=== PATIENT | male | born 1955 ===

== ENCOUNTER 2025-01-24 14:51 | Inpatient (IN) | payer OTHER ==
[~2025-01-24] VITALS: Ht 172.7 cm; Wt 74.9 kg
[~2025-01-24 14:51] MED LIST: HYDACE5 PO; NAPR550 PO
[2025-01-24] MEDS ORDERED: LOSA25 PO (15:01)
[2025-01-24] MEDS ORDERED: AMLODIPINE BESY10 MG PO (15:01)
[2025-01-24] MEDS ORDERED: LOSA50 PO (15:02)
[2025-01-24] MEDS ORDERED: HYDCHL25 PO (15:02)
[2025-01-24 16:31] LABS: Alanine Aminotransfer (ALT/SGP 142.0 U/L (12-78); Albumin, Blood 3.2 g/dL (3.4-5.0); Albumin/Globulin Ratio 1.1 (0.8-1.8); Anion Gap 15.0 mmol/L (3-11); Aspartate Aminotrans (AST/SGOT 94.0 U/L (12-37); Bilirubin, Total 0.6 mg/dL (0.1-1.0); Blood Urea Nitrogen 10.0 mg/dL (8-24); CO2, Blood 20.0 mmol/L (21-32); Calcium, Blood 7.9 mg/dL (8.5-10.1); Chloride, Blood 86.0 mmol/L (98-108); Creatinine, Blood 0.95 mg/dL (0.60-1.20); Globulin, Blood 2.9 g/dL (2.2-4.0); Glucose, Blood 106.0 mg/dL (70-99); Potassium, Blood 3.6 mmol/L (3.5-5.5); Sodium, Blood 117.0 mmol/L (136-145); Total Protein, Blood 6.1 g/dL (6.4-8.2)
[2025-01-24 16:36] LABS: Ethanol (Alcohol), Blood, Med 301.0 mg/dL
[2025-01-24 17:16] LABS: Source, Urine Clean Catch
[2025-01-24 17:50] LABS: BASOPHILS ABSOLUTE AUTO 0.07 K/mm3 (0.00-0.23); BASOPHILS PERCENT AUTO 1 % (0-2); EOSINOPHILS ABSOLUTE AUTO 0.28 K/mm3 (0.00-0.68); EOSINOPHILS PERCENT AUTO 3 % (0-6); Hematocrit 33.3 % (37.0-53.0); Hemoglobin 12.5 g/dL (13.5-17.5); IMMATURE GRAN ABSOLUTE AUTO 0.10 K/mm3 (0.00-0.10); IMMATURE GRAN PERCENT AUTO 1 % (0-1); LYMPHOCYTES ABSOLUTE AUTO 2.27 K/mm3 (0.84-5.20); LYMPHOCYTES PERCENT AUTO 26 % (21-46); MONOCYTES ABSOLUTE AUTO 0.76 K/mm3 (0.16-1.47); MONOCYTES PERCENT AUTO 9 % (4-13); Mean Corpuscular HGB Conc 37.5 g/dL (31.5-36.5); Mean Corpuscular Volume 88 fL (80-100); NEUTROPHILS ABSOLUTE AUTO 5.43 K/mm3 (1.96-9.15); NEUTROPHILS PERCENT AUTO 61 % (41-73); NRBC ABSOLUTE 0.04 K/mm3 (0.00-0.02); NRBC Auto 0.4 /100 WBC (0.0-0.2); Platelet Count 231 K/mm3 (150-400); RDW Coefficient Variation 11.4 % (11.7-14.2); RDW Standard Deviation 36.5 fL (35.1-46.3)
[2025-01-24 18:08] LABS: Bilirubin, Urine Neg (Neg); Color, Urine Yellow (P-Yellow); Glucose Qualitative, Urine Neg (Neg); Ketones, Urine Neg (Neg); Leukocyte Esterase, Urine Neg (Neg); Protein, Urine 1+ (Neg); Specific Gravity, Urine 1.010 (1.003-1.022); Urobilinogen, Urine NORM (Normal)
[2025-01-24 18:47] LABS: Sodium, Urine, Random 13 mmol/L (20-110)
[2025-01-24 18:51] LABS: Osmolality, Urine 224 mos/kg (15-1400)
--- NOTE | 2025-01-24 19:09 | NUR ---
ARRIVAL TO ICU: PT ARRIVED TO ICU-10 VIA GURNEY AT APPROX 1832. PT SLID TO BED BY STAFF. A/OX4, VSS. 3% NA INFUSING PER ORDERS. PT CHANGED INTO GOWN & ASSISTED W/ URINAL. SPOUSE AT BEDSIDE. BEDSIDE REPORT TO NOC RN'S.
[2025-01-24 20:22] LABS: Anion Gap 15.0 mmol/L (3-11); Blood Urea Nitrogen 8.0 mg/dL (8-24); CO2, Blood 17.0 mmol/L (21-32); Calcium, Blood 8.2 mg/dL (8.5-10.1); Chloride, Blood 88.0 mmol/L (98-108); Creatinine, Blood 0.86 mg/dL (0.60-1.20); Glucose, Blood 84.0 mg/dL (70-99); Potassium, Blood 4.1 mmol/L (3.5-5.5); Sodium, Blood 116.0 mmol/L (136-145)
[2025-01-24 20:30] VITALS: BP 121/65
[2025-01-24 21:00] VITALS: BP 121/65
[2025-01-24] MEDS ORDERED: NS 500 ML IV ONE ×2 (21:00→23:00)
[2025-01-24 21:28] LABS: pH Blood Venous 7.44 (7.34-7.37)
[2025-01-24 21:30] VITALS: BP 123/63
[2025-01-24 22:00] VITALS: BP 121/68
[2025-01-24] MEDS ORDERED: Ondansetron HCl 2 MG / ML 2ML Vial IV PRN (22:15)
[2025-01-24 22:22] LABS: Acetaminophen, Random <2.0 ug/mL (10.0-30.0); Magnesium, Blood 1.7 mg/dL (1.6-2.4); Phosphorus, Blood 4.6 mg/dL (2.5-4.9); Salicylate 6.4 mg/dL (2.8-20.0); Thyroid Stimulating Hormone 0.742 uIU/mL (0.360-4.800)
[2025-01-24 22:27] LABS: U Amphetamine Screen Not Detected; U Barbituate Screen Not Detected; U Benzodiazapine Screen Not Detected; U Buprenorphine Screen Not Detected; U Cannabinoids Screen Not Detected; U Cocaine Screen Not Detected; U Methadone Screen Not Detected; U Methamphetamine Screen Not Detected; U Opiates Screen Not Detected; U Oxycodone Screen Not Detected; U Phencyclidine Screen Not Detected
[2025-01-24 22:30] VITALS: BP 124/63
[2025-01-24] MEDS ORDERED: NS 1,000 ML BAG IR ONE (22:45)
[2025-01-24 23:00] VITALS: BP 111/68
[2025-01-25] VITALS (43 sets, daily range): BP systolic 87–148; BP diastolic 50–109
[2025-01-25 00:06] LABS: Osmolality, Serum 292 mos/KG (275-300)
[2025-01-25 00:27] LABS: Anion Gap 13.0 mmol/L (3-11); Blood Urea Nitrogen 8.0 mg/dL (8-24); CO2, Blood 20.0 mmol/L (21-32); Calcium, Blood 8.1 mg/dL (8.5-10.1); Chloride, Blood 95.0 mmol/L (98-108); Creatinine, Blood 0.85 mg/dL (0.60-1.20); Glucose, Blood 72.0 mg/dL (70-99); Potassium, Blood 3.7 mmol/L (3.5-5.5); Sodium, Blood 124.0 mmol/L (136-145)
[2025-01-25 06:00] LABS: Alanine Aminotransfer (ALT/SGP 142.0 U/L (12-78); Albumin, Blood 3.3 g/dL (3.4-5.0); Albumin/Globulin Ratio 1.0 (0.8-1.8); Anion Gap 11.0 mmol/L (3-11); Aspartate Aminotrans (AST/SGOT 90.0 U/L (12-37); Bilirubin, Total 0.9 mg/dL (0.1-1.0); Blood Urea Nitrogen 8.0 mg/dL (8-24); CO2, Blood 21.0 mmol/L (21-32); Calcium, Blood 8.5 mg/dL (8.5-10.1); Chloride, Blood 101.0 mmol/L (98-108); Creatinine, Blood 0.9 mg/dL (0.60-1.20); Globulin, Blood 3.4 g/dL (2.2-4.0); Glucose, Blood 71.0 mg/dL (70-99); Potassium, Blood 4.1 mmol/L (3.5-5.5); Sodium, Blood 129.0 mmol/L (136-145); Total Protein, Blood 6.7 g/dL (6.4-8.2)
--- NOTE | 2025-01-25 06:13 | NUR ---
MD NOTIFY DR STEWARD UPDATED ON NA LAB RESULTS T/O SHIFT, LATEST NA 129. DR STEWARD TO INPUT ORDERS. CONTINUING TO MONITOR.
--- NOTE | 2025-01-25 06:39 | NUR ---
SHIFT SUMMARY PT ALERT/ORIENTED EARLY IN SHIFT. ETOH WITHDRAWAL SYMPTOMS INCREASING T/O NIGHT. LIBRIUM GIVEN FOR SYMPTOMS WHICH PT STATES WAS HELPFUL. O2 SAT OCCASIONALLY DROPPING WHILE ASLEEP, 2L NC STARTED TO KEEP O2SAT > 94%. LATEST CIWA WAS 8-9. VSS AT THIS TIME. WILL UPDATE DAY RN WITH OUTSTANDING ISSUES.
[2025-01-25 07:28] LABS: BASOPHILS ABSOLUTE AUTO 0.04 K/mm3 (0.00-0.23); BASOPHILS PERCENT AUTO 1 % (0-2); EOSINOPHILS ABSOLUTE AUTO 0.12 K/mm3 (0.00-0.68); EOSINOPHILS PERCENT AUTO 2 % (0-6); Hematocrit 34.7 % (37.0-53.0); Hemoglobin 12.9 g/dL (13.5-17.5); IMMATURE GRAN ABSOLUTE AUTO 0.02 K/mm3 (0.00-0.10); IMMATURE GRAN PERCENT AUTO 0 % (0-1); LYMPHOCYTES ABSOLUTE AUTO 1.56 K/mm3 (0.84-5.20); LYMPHOCYTES PERCENT AUTO 22 % (21-46); MONOCYTES ABSOLUTE AUTO 0.59 K/mm3 (0.16-1.47); MONOCYTES PERCENT AUTO 8 % (4-13); Mean Corpuscular Volume 89 fL (80-100); NEUTROPHILS ABSOLUTE AUTO 4.89 K/mm3 (1.96-9.15); NEUTROPHILS PERCENT AUTO 68 % (41-73); NRBC ABSOLUTE 0.00 K/mm3 (0.00-0.02); NRBC Auto 0.0 /100 WBC (0.0-0.2); Platelet Count 227 K/mm3 (150-400); RDW Coefficient Variation 11.5 % (11.7-14.2); RDW Standard Deviation 37.0 fL (35.1-46.3)
[2025-01-25 07:30] LABS: Mean Corpuscular HGB Conc 37.2 g/dL (31.5-36.5)
[2025-01-25] MEDS ORDERED: Enoxaparin 40 MG/0.4 ML SYR SC SCH (09:00)
--- NOTE | 2025-01-25 10:00 | NUR ---
AM NOTE PT ALERT AND ORIENTED FOR BEDSIDE REPORT FROM NOC RN. NEURO: ALERT AND ORIENTED X 4, CIWA SCORED 10, PT REPORTS MODERATE TREMORS, MILD HEADACHE, AND MILD NAUSEA. MEDICATED PER SEP. CARDIAC: MAPS >65, NO EDEMA, CAP REFILL<3 SECS. RESPIRATORY: ON RA WHILE AWAKE, 2L NC WHILE SLEEPING. LUNG SOUNDS DIM T/O, RHONCHI PRESENT THAT IT EASILY CLEARED W/ STRONG SPONTANEOUS COUGH. GI: BOWEL SOUNDS ACTIVE, ABD NONTENDER TO PALPITATION. : WNL. SKIN WITHOUT BREAKDOWN OR TEARS. ACCESS: PIV X 2 GTTS: D5 250ML/HR X 1L
[2025-01-25] MEDS ORDERED: OMEP20ER PO (10:48)
[2025-01-25 11:50] LABS: Anion Gap 8.0 mmol/L (3-11); Blood Urea Nitrogen 9.0 mg/dL (8-24); CO2, Blood 24.0 mmol/L (21-32); Calcium, Blood 8.4 mg/dL (8.5-10.1); Chloride, Blood 98.0 mmol/L (98-108); Creatinine, Blood 0.83 mg/dL (0.60-1.20); Glucose, Blood 145.0 mg/dL (70-99); Potassium, Blood 3.6 mmol/L (3.5-5.5); Sodium, Blood 126.0 mmol/L (136-145)
[2025-01-25 14:52] LABS: Anion Gap 10.0 mmol/L (3-11); Blood Urea Nitrogen 9.0 mg/dL (8-24); CO2, Blood 26.0 mmol/L (21-32); Calcium, Blood 8.5 mg/dL (8.5-10.1); Chloride, Blood 94.0 mmol/L (98-108); Creatinine, Blood 0.81 mg/dL (0.60-1.20); Glucose, Blood 81.0 mg/dL (70-99); Potassium, Blood 3.6 mmol/L (3.5-5.5); Sodium, Blood 126.0 mmol/L (136-145)
--- NOTE | 2025-01-25 17:49 | NUR ---
PM NOTE ASSESSMENT REMAINS UNCHANGED FROM AM NOTE. CIWA SCORES RANGED FROM 8-10, MEDICATED PER MAR Q4H. SODIUM LABS REMAINED STABLE T/O SHIFT. ACCESS: LAC PIV, RAC PIV
--- NOTE | 2025-01-25 19:00 | NUR ---
ASSUMPTION OF CARE BEDSIDE REPORT RECEIVED FROM DAY RN. REVIEWED ALL OUTSTANDING ISSUES AND PROBLEMS TO DATE. PT ALERT/ORIENTED AT THIS TIME. VSS. MILD ETOH WITHDRAWAL SYMPTOMS NOTED. WILL CONTINUE TO MONITOR.
[2025-01-25 19:28] LABS: Anion Gap 9.0 mmol/L (3-11); Blood Urea Nitrogen 9.0 mg/dL (8-24); CO2, Blood 25.0 mmol/L (21-32); Calcium, Blood 8.7 mg/dL (8.5-10.1); Chloride, Blood 94.0 mmol/L (98-108); Creatinine, Blood 0.82 mg/dL (0.60-1.20); Glucose, Blood 133.0 mg/dL (70-99); Potassium, Blood 3.3 mmol/L (3.5-5.5); Sodium, Blood 125.0 mmol/L (136-145)
--- NOTE | 2025-01-25 19:55 | NUR ---
NOTIFY HOSPITALIST MERLY UPDATED WITH LATEST SODIUM LEVEL OF 125. NEW ORDERS RECEIVED. WILL CONTINUE TO MONITOR.
[2025-01-26] VITALS (18 sets, daily range): BP systolic 110–146; BP diastolic 57–106
--- NOTE | 2025-01-26 01:21 | NUR ---
NOTIFY DR STEWARD UPDATED WITH MOST RECENT SODIUM LEVEL 127 AND K+ 3.3. ORDER RECEIVED. WILL CONTINUE TO MONITOR.
[2025-01-26] MEDS ORDERED: NS 1,000 ML IV SCH (05:30)
[2025-01-26 05:34] LABS: Anion Gap 9.0 mmol/L (3-11); Blood Urea Nitrogen 7.0 mg/dL (8-24); CO2, Blood 25.0 mmol/L (21-32); Calcium, Blood 8.6 mg/dL (8.5-10.1); Chloride, Blood 96.0 mmol/L (98-108); Creatinine, Blood 0.8 mg/dL (0.60-1.20); Glucose, Blood 84.0 mg/dL (70-99); Potassium, Blood 4.1 mmol/L (3.5-5.5); Sodium, Blood 126.0 mmol/L (136-145)
[2025-01-26 05:43] LABS: BASOPHILS ABSOLUTE AUTO 0.07 K/mm3 (0.00-0.23); BASOPHILS PERCENT AUTO 1 % (0-2); EOSINOPHILS ABSOLUTE AUTO 0.11 K/mm3 (0.00-0.68); EOSINOPHILS PERCENT AUTO 2 % (0-6); Hematocrit 34.8 % (37.0-53.0); Hemoglobin 13.0 g/dL (13.5-17.5); IMMATURE GRAN ABSOLUTE AUTO 0.02 K/mm3 (0.00-0.10); IMMATURE GRAN PERCENT AUTO 0 % (0-1); LYMPHOCYTES ABSOLUTE AUTO 1.28 K/mm3 (0.84-5.20); LYMPHOCYTES PERCENT AUTO 18 % (21-46); MONOCYTES ABSOLUTE AUTO 0.59 K/mm3 (0.16-1.47); MONOCYTES PERCENT AUTO 9 % (4-13); Mean Corpuscular HGB Conc 37.4 g/dL (31.5-36.5); Mean Corpuscular Volume 89 fL (80-100); NEUTROPHILS ABSOLUTE AUTO 4.91 K/mm3 (1.96-9.15); NEUTROPHILS PERCENT AUTO 70 % (41-73); NRBC ABSOLUTE 0.00 K/mm3 (0.00-0.02); NRBC Auto 0.0 /100 WBC (0.0-0.2); Platelet Count 218 K/mm3 (150-400); RDW Coefficient Variation 11.6 % (11.7-14.2); RDW Standard Deviation 37.1 fL (35.1-46.3)
--- NOTE | 2025-01-26 06:16 | NUR ---
SHIFT SUMMARY PT CONT TO IMPROVE WITH ONLY MILD TO MOD ETOH WITHDRAWAL SYMPTOMS. ALERT/ORIENTED. DENIES NEED FOR NICOTINE PATCH AT THIS TIME. LIBRIUM GIVEN FOR SYMPTOMS NEEDED. CONTINUES NEED FOR NC 2 L WHILE SLEEPING TO KEEP O2 SAT>94%. OCCAS PULLS NC OFF, REMINDED TO KEEP ON WHILE ASLEEP. LATEST NA LEVEL 126. WILL UPDATE DAY RN WITH OUTSTANDING ISSUES AND PROBLEMS TO DATE. VSS AT THIS TIME.
--- NOTE | 2025-01-26 11:24 | NUR ---
AM NOTE PT AWAKE AT TIME OF BEDSIDE REPORT W/ NOC RN. NEURO: ALERT AND ORIENTED X4, CIWA SCORE 4-6, MILDLY TREMULOUS IN UE. CARDAIC: NSR W/ FIRST DEGREE BLOCK, MAPS>65, CAP REFILL< 3 SECS, NO EDEMA. RESPIRATORY: LUNGS DIM T/O, RHNOCHI PRESENT IN UPPER LOBES AND ABLE TO BE CLEARED W/ SPONTANEOUS COUGH. ON RA WHILE AWAKE, FIO2>93%. GI: WNL. : BOWEL TONES ACTIVE, ABD SOFT AND NONTENDER TO PALPATION. SKIN: WNL. ACCESS: RAC PIV, LAC PIV GTTS: NS 125
--- NOTE | 2025-01-26 14:00 | NUR ---
PT TRANSFERRED TO [facility] VIA WHEELCHAIR W/ ALL BELONGINGS.
--- NOTE | 2025-01-26 14:06 | NUR ---
ASSUMPITION NOTE: this rn to assume care of patient. patient is alert and oriented x4 & cooperative with his care, is able to make needs known & was oriented to the call light. pt vitals stable, denied any chest pain/pressure or feeling of shortness of breath. patient called to notify about room change. has call light within reach,phone & urinal are within reach & bed in lowest position stating nothing else is needed at this time.
--- NOTE | 2025-01-26 17:06 | NUR ---
Pt. is awake and welcomes my visit. Pt. is pleasant. Spouse is at bedside. Facilitated a life review and considered matters of samantha and belief. Pt. verbalized that he is angry towards God because of circumstances in his life. Listen with Pastoral care and empathy. As Life review continues it was discovered that we are neighbors. Rapport is establish and Pt. and spouse displayed evidence of being encouraged. Pt. declined prayer, but verbalized gratitude for the spiritual care visit.
--- NOTE | 2025-01-26 18:01 | NUR ---
SHIFT SUMMARY: PATIENT IS ALERT AND ORIENTED X4 & COOPERATIVE WITH HIS CARE, IS ABLE TO MAKE NEEDS KNOWN & USES CALL LIGHT APPROPRIATELY. PATIENT SATTING >92% ON ROOM AIR. ON TELE SHOWING SINUS WITH A FIRST DEGREE BLOCK RATE IN 60-70'S. PATIENT TRANSFFERED OVER FROM ICU TODAY. WAS ORIENTED TO ROOM AND CALL LIGHT. PATIENT NOTIFIED BED ALARM WOULD BE ON JUST IN CASE HE FORGOT TO CALL. HAS LR RUNNING AT 125 AND THIAMINE RUNNING. CAME TO BEDSIDE. PATIENT HAS CALL LIGHT WITHIN REACH, BED IN LOWEST POSITION & STATING NOTHING ELSE IS NEEDED AT THIS TIME.
--- NOTE | 2025-01-26 18:48 | NUR ---
RESIDENT CALLED: THIS RN CALLED RESIDENT REGARDING PT STATING HE HAS A SLIGHT HEADACHE,DOES NOT HAVE TYLENOL ORDERED. THIS RN NOTIFIED LIVER ENZYMES WERE ELVATED. RESIDENT GAVE VERBAL ORDER TO PLACE ONE TIME DOSE OF IBUPROFUEN.
--- NOTE | 2025-01-26 21:08 | NUR ---
ASSUMPTION OF CARE PT A&O X4, FORGETFUL AT TIMES. BED ALARM TURNED ON, YELLOW SOCKS PLACED ON PT, AND FALL RISK LIGHT ON. CIWAS PER PROTOCOL, LAST CIWA OF 3. HR IN THE 60'S, SR W/ 1ST DEGREE BLOCK. HE DENIES ANY CP/PRESSURE, NUMB/TINGLING, SBP STABLE. O2 >92% ON RA, HE DENIES ANY SOB. PT HAS NS INFUSING PER EMAR. PT RESTING IN BED AT THIS TIME. CALL LIGHT IN REACH.
[2025-01-27 03:41] VITALS: BP 131/74
[2025-01-27 04:10] LABS: BASOPHILS ABSOLUTE AUTO 0.07 K/mm3 (0.00-0.23); BASOPHILS PERCENT AUTO 1 % (0-2); EOSINOPHILS ABSOLUTE AUTO 0.38 K/mm3 (0.00-0.68); EOSINOPHILS PERCENT AUTO 5 % (0-6); Hematocrit 38.3 % (37.0-53.0); Hemoglobin 14.2 g/dL (13.5-17.5); IMMATURE GRAN ABSOLUTE AUTO 0.05 K/mm3 (0.00-0.10); IMMATURE GRAN PERCENT AUTO 1 % (0-1); LYMPHOCYTES ABSOLUTE AUTO 1.75 K/mm3 (0.84-5.20); LYMPHOCYTES PERCENT AUTO 23 % (21-46); MONOCYTES ABSOLUTE AUTO 0.80 K/mm3 (0.16-1.47); MONOCYTES PERCENT AUTO 11 % (4-13); Mean Corpuscular HGB Conc 37.1 g/dL (31.5-36.5); Mean Corpuscular Volume 89 fL (80-100); NEUTROPHILS ABSOLUTE AUTO 4.58 K/mm3 (1.96-9.15); NEUTROPHILS PERCENT AUTO 60 % (41-73); NRBC ABSOLUTE 0.00 K/mm3 (0.00-0.02); NRBC Auto 0.0 /100 WBC (0.0-0.2); Platelet Count 184 K/mm3 (150-400); RDW Coefficient Variation 11.6 % (11.7-14.2); RDW Standard Deviation 37.4 fL (35.1-46.3)
[2025-01-27 04:23] LABS: Anion Gap 12.0 mmol/L (3-11); Blood Urea Nitrogen 4.0 mg/dL (8-24); CO2, Blood 19.0 mmol/L (21-32); Calcium, Blood 8.4 mg/dL (8.5-10.1); Chloride, Blood 105.0 mmol/L (98-108); Creatinine, Blood 0.75 mg/dL (0.60-1.20); Glucose, Blood 90.0 mg/dL (70-99); Potassium, Blood 4.2 mmol/L (3.5-5.5); Sodium, Blood 132.0 mmol/L (136-145)
--- NOTE | 2025-01-27 05:22 | NUR ---
SHIFT SUMMARY PT A&O X4, CONFUSED/FORGETFUL AT TIMES. CIWAS PER PROTOCOL, RANGING FROM 3-5. PT WAKING UP FROM SLEEP CONFUSED, HE DOES GET IRRITATED BUT IS EASILY REDIRECTABLE. HR IN THE 70'S, SR W/ 1ST DEGREE BLOCK. HE DENIES ANY CP/PRESSURE, NUMB/TINGLING, SBP STABLE. PT ABLE TO GET UP AND USE URINAL WITH 1-2 PERSON ASSSIT, PT VERY WEAK/UNSTEADY WHILE WALKING. O3 >90% ON RA, HE DENIES ANY O2 USE AT TOME. PT HAS BEEN WAKING UP FROM SLEEP AND IS CONFUSED AND HAS TO BE REORIENTED. PT STATED "I WANT OUT OF HERE" MULTIPLE TIMES T/O NIGHT. HE IS RESTING IN BED A T THIS TIME. CALL LIGHT IN REACH.
[2025-01-27 07:25] VITALS: BP 127/94
--- NOTE | 2025-01-27 13:06 | NUR ---
Transfer to Medical Pt made medical w/ telemetry status this morning. Pt A&O x4. VSS. Spo2 > 92% on RA. Monitor showing SR, HR 70s-80s. Pt CIWA max score 3 this shift. Pt w/ mild tremors & mild headache. Pt unsteady, requiring 1 person assist w/ FWW. Bed alarm & chair alarm used d/t high fall risk. Pt not attempting to get up w/out assistance. Report given to accepting medical floor RN assuming care of pt. Pt to be taken to room 341 w/ belongings.
[2025-01-27 16:39] VITALS: BP 140/86
--- NOTE | 2025-01-27 17:09 | NUR ---
SHIFT SUMMARY PT IS TRANSFER FROM PCU. GOT REPORT FROM CAUL PULLER. PT A&OX4. PT ADMITTED DUE TO HYPONATREMIA. PT GOT TO FLOOR AT 1324 ARIVED VIA WHEELCHAIR. BELONGINGS AT BEDSIDE. PT REPORTS NO GENERAL PAIN. NO SOB OR CHEST PAIN REPORTED. PT ON ROOM AIR. PT USES URINAL WHEN NEED TO VOID. PT IS 1 ASSIST WITH FWW. PT UNSTEADY ON FEET, BED ALARM ON. CIWAS PER PROTOCOL. LAST CIWA WAS 2 DUE TO MINIMAL TREMORS. PT ON TELE, NO TELE REPORTS NOTED. VISITOR IN ROOM. VSS. NS RUNNING AT 125ML/HR. PT LAST SODIUM WAS 132. PT ORIENTED TO UNIT/FALL PRECAUTIONS/CALL LIGHT. PT IN BED, BED IN LOWEST POSITION, CALL LIGHT IN REACH.
[2025-01-27 19:36] VITALS: BP 152/83
[2025-01-27 22:53] VITALS: BP 142/88
[2025-01-28 03:14] VITALS: BP 153/88
[2025-01-28 05:14] LABS: BASOPHILS ABSOLUTE AUTO 0.07 K/mm3 (0.00-0.23); BASOPHILS PERCENT AUTO 1 % (0-2); EOSINOPHILS ABSOLUTE AUTO 0.38 K/mm3 (0.00-0.68); EOSINOPHILS PERCENT AUTO 6 % (0-6); Hematocrit 36.9 % (37.0-53.0); Hemoglobin 13.2 g/dL (13.5-17.5); IMMATURE GRAN ABSOLUTE AUTO 0.03 K/mm3 (0.00-0.10); IMMATURE GRAN PERCENT AUTO 0 % (0-1); LYMPHOCYTES ABSOLUTE AUTO 1.44 K/mm3 (0.84-5.20); LYMPHOCYTES PERCENT AUTO 21 % (21-46); MONOCYTES ABSOLUTE AUTO 0.60 K/mm3 (0.16-1.47); MONOCYTES PERCENT AUTO 9 % (4-13); Mean Corpuscular HGB Conc 35.8 g/dL (31.5-36.5); Mean Corpuscular Volume 90 fL (80-100); NEUTROPHILS ABSOLUTE AUTO 4.28 K/mm3 (1.96-9.15); NEUTROPHILS PERCENT AUTO 63 % (41-73); NRBC ABSOLUTE 0.00 K/mm3 (0.00-0.02); NRBC Auto 0.0 /100 WBC (0.0-0.2); Platelet Count 218 K/mm3 (150-400); RDW Coefficient Variation 11.5 % (11.7-14.2); RDW Standard Deviation 38.4 fL (35.1-46.3)
--- NOTE | 2025-01-28 05:46 | NUR ---
SHIFT SUMMARY PT HERE FOR HYPONATREMIA. HE HAS BEEN AOX4, CALM AND COOPERATIVE. HE HAS BEEN FORGETFUL AT TIMES, TAURUS WHEN GETTING OOB W/O CALLING. PT HAS BEEN 1PA W/ FWW, BUT HE HAS NEEDED TO JUST STAND TO USE URINAL. PT WEAK BLE. BED ALARM HAS BEEN ARMED. HE HAS BEEN ON RA. TELE ON WELL W/ NO EVENTS OVERNIGHT. HE HAS BEEN CIWA, W/ STABLE WITHDRAWL. PT HAS HAD NO COMPLAINTS OVERNIGHT. NO ACUTE EVENTS OVERNIGHT.
[2025-01-28 06:16] LABS: Anion Gap 10.0 mmol/L (3-11); Blood Urea Nitrogen 3.0 mg/dL (8-24); CO2, Blood 22.0 mmol/L (21-32); Calcium, Blood 8.9 mg/dL (8.5-10.1); Chloride, Blood 107.0 mmol/L (98-108); Creatinine, Blood 0.73 mg/dL (0.60-1.20); Glucose, Blood 106.0 mg/dL (70-99); Potassium, Blood 3.6 mmol/L (3.5-5.5); Sodium, Blood 135.0 mmol/L (136-145)
[2025-01-28 07:46] VITALS: BP 150/90
[2025-01-28] MEDS ORDERED: CENTRUM SILVER1 EAC2 PO (14:34)
--- NOTE | 2025-01-28 16:31 | NUR ---
DISCHARGE SUMMARY CLIENT AOX4. MEDICATION COMPLIANT. IV NORMAL SALINE INFUSING @ 125ML/HR. SPOUSE IN ROOM MOST OF THE MORNING. PT EVALUATION COMPLETED. DISCHARGE ORDERS RECEIVED. IV AND TELE D/C'D. MED LIST FAXED TO [facility] PER CLIENT REQUEST. DISCHARGE PACKET GIVEN TO AND EXPLAINED TO CLIENT. CLIENT LEFT THE UNIT VIA WHEELCHAIR ESCORTED BY SPOUSE.
== END 2025-01-28 15:23 | disposition home health service (06) | DRG 640 ==
LOC: ER 14:51 → PCU 17:33 → ICUE 17:33 → PCU 01-26 14:04 → MEDS 01-27 13:20
PROVIDERS: Emergency Medicine; Nurse Practitioner Acute Care; Student in an Organized Health Care Education/Training Program; ADMIT Internal Medicine
PROC: HZ2ZZZZ Detoxification Services for Substance Abuse Treatment (ICD-10-PCS; principal; 2025-01-24)
DX: E87.1 Hypo-osmolality and hyponatremia (principal); G93.41 Metabolic encephalopathy; F10.230 Alcohol dependence with withdrawal, uncomplicated; I44.7 Left bundle-branch block, unspecified; E87.20 Acidosis, unspecified; F41.9 Anxiety disorder, unspecified; I10 Essential (primary) hypertension; F17.210 Nicotine dependence, cigarettes, uncomplicated; J43.9 Emphysema, unspecified; R74.01 Elevation of levels of liver transaminase levels; Y90.8 Blood alcohol level of 240 mg/100 ml or more; Z88.5 Allergy status to narcotic agent; Z88.1 Allergy status to other antibiotic agents; Z90.89 Acquired absence of other organs; Z79.899 Other long term (current) drug therapy
CPT/HCPCS: 36415; 70450; 80048; 80053; 80320; 82010; 82533; 82803; 83605; 83735; 83930; 83935; 84100; 84132; 84295; 84300; 84443; 85025; 93005; 93010; 94760; 97110; 97116; 97161; 97530; 99285-25; A9270; G0480; J1650; J2405; J2597; J3411; J7030; J7040; J7060; J7070